=== PATIENT | female | born 1995 | race Caucasian/White ===

== ENCOUNTER 2022-01-13 00:08 | Day surgery (SDC) | payer OTHER, SELFPAY ==
--- NOTE | 2021-11-30 07:46 | PM.IMHP ---
H&P: HPI History of Present Illness Date/Time: 11/30/21 07:46 Chief Complaint: A 26-year-old multipara desires permanent sterilization. Risk and benefits reviewed the procedure. Alternatives including but not exclusive of pills patches large ex injections were all reviewed. She understands that this is irreversible. Failure rate of 05/999 with subsequent risk of ectopic bleeding and . She had all questions answered and asked to proceed PMFSH Social History Social History Smoking status: Current every day smoker Exam Const: General: cooperative, healthy appearing and comfortable Nutritional Appearance: average body habitus and well nourished Orientation/consciousness: oriented to person, oriented to place and oriented to time Chest: Chest palpation & inspection: normal inspection of the chest Resp: Effort & Inspection: normal respiratory effort Cardio: Rate: regular rate Rhythm: regular rhythm Heart sounds: S1 normal heart sound present and S2 normal heart sound present GI: Inspection: normal to inspection : General: Yes bimanual renal exam normal bilaterally External Female Exam: normal external appearance Speculum Exam - Vagina: normal appearance of the vagina Speculum Exam - Cervix: normal appearance of the cervix Bimanual exam- vagina & uterus: uterine size normal Bimanual Exam- Adnexa, other: normal adnexae Assessment and Plan Assessment and plan (1) Sterilization: Code(s): Z30.2 - Encounter for sterilization Status: Acute Plan laparoscopic bilateral tubal ligation
--- NOTE | 2021-12-02 07:15 | WPDHPUPDATE1 ---
History and Physical Update Update Date/Time: 12/02/21 07:15 History and Physical has been reviewed, including an updated exam of the patient. There are NO changes in the patient's condition. Risks, benefits, and alternatives have been discussed and questions answered. Patient agrees to proceed with procedure.
[2022-01-10 14:29] VITALS: BMI 36.0
--- NOTE | 2022-01-10 14:34 | PC.NURSE ---
Report to the Outpatient Waiting Room, entrance under the green pavilion located off [facility], at time 0630 on date 01/13/22. Planned Procedure Time: 0830. Time changes happen often and if your time is changed the preop area will call you the afternoon before. - You and your visitor will be asked to self-screen and do not enter if you have any COVID symptoms. - We encourage only one visitor and NO visitors under age 16 are allowed at this time. Your visitor will receive communication by the phone number that is given day of service. - The patient visitor is requested to social distance or may leave the building when not with patient due to restrictions. - A mask is required within the hospital. Patients may have clear liquids (water, carbonated beverages, clear teas, apple juice) until 3 hours prior to surgery with a maximum of 20 ounces. - No food from midnight until time of surgery Take the following medications with a SIP of water the morning of surgery: N/A Medications to discontinue per physician: N/A Date to take last dose: N/A Please no make-up, nail ukrainian, hairspray, perfume, deodorant, or body powder the day of surgery. No jewelry (including any body piercings) or valuables the day of surgery, leave them at home. Please take a shower or bath the night before, or the morning of, surgery with an antibacterial soap. Wear comfortable, loose fitting clothing. - Jewelry must be removed prior to entering the operating room. Rings and piercings that are not removed may be cut off. - The hospital will not accept responsibility for valuables. - Please leave all valuables, including medications, at home the day of surgery. If you are going home after surgery, a licensed hog driver must drive you home. - NO public transportation without another adult. - We recommend that an adult stay with you for 24 hours following discharge. - We also recommend that you do not drive, make important decision, drink alcoholic beverages, or take any drugs that were not prescribed by your health care provider for at least 24 hours after your discharge time. Follow any additional instructions given to you from your surgeon. If you or anyone in your household have experienced Covid symptoms in the past week, please notify your surgeon or the nurse liaison at the phone number below for possible testing. Telephone instructions given to PT - DOLLY DIOR and asked if any additional questions and then verbalized understanding. Patient advised to call surgeon office or pre surgery nurse liaison [phone] if any additional questions.
--- NOTE | 2022-01-11 16:34 | PM.IMHP ---
H&P: HPI History of Present Illness Date/Time: 01/11/22 16:34 Chief Complaint: desires sterilization Narrative: 26-year-old multiparous patient desires permanent irreversible sterilization. She declines attempts at pills patches injections long-acting contraception etc.. She understands this to be completely irreversible with a failure rate of 05/999 risks and benefits of the procedure were also reviewed. She had all questions answered and asked to proceed PMFSH Social History Social History Years smoked: 2 Smoking status: Current every day smoker Tobacco type: cigarettes Alcohol intake: current Alcohol use details: 2/MONTH Substance use: never Substance use type: does not use Spiritual care concerns: No Meds Home Medications and Allergies Home Medications Medication Instructions Recorded Confirmed Type No Home Medications 01/10/22 01/10/22 History Allergies Allergy/AdvReac Type Severity Reaction Status Date / Time tramadol Allergy Hives Verified 01/10/22 14:28 Exam Const: General: cooperative, healthy appearing and comfortable Orientation/consciousness: oriented to person, oriented to place and oriented to time HENMT: Head: normal to inspection Chest: Chest palpation & inspection: normal inspection of the chest Resp: Effort & Inspection: normal respiratory effort Cardio: Rate: regular rate Rhythm: regular rhythm Heart sounds: S1 normal heart sound present and S2 normal heart sound present : External Female Exam: normal external appearance Speculum Exam - Vagina: normal appearance of the vagina Speculum Exam - Cervix: normal appearance of the cervix Bimanual exam- vagina & uterus: uterine size normal Bimanual Exam- Adnexa, other: normal adnexae Assessment and Plan Assessment and plan (1) Sterilization: Code(s): Z30.2 - Encounter for sterilization Status: Acute Plan laparoscopic bilateral tubal ligation
--- NOTE | 2022-01-12 13:27 | P.PNAN_ITS ---
Anes - Initial Pre Proc Eval Procedure: Operation Date: 01/13/22 08:30 Proposed Procedures p Laparoscopic Bilateral Tubal Ligation with Fallopian Rings - Alex Manrique MD Date/Time: 01/12/22 13:27 Surgeon: Alex Manrique MD Pre Op Diagnosis: desires sterilization Patient Data Age: 26 Gender: F Height: 1.59 m Weight: 90.72 kg Allergies Allergy/AdvReac Type Severity Reaction Status Date / Time tramadol Allergy Hives Verified 01/13/22 06:47 Home Medications Medication Instructions Recorded Confirmed Type hydrocodone 5 mg-acetaminophen 325 1 tablet PO Q4H PRN pain #20 tabs 01/13/22 Rx mg tablet Patient hx anesthesia problems: none Family hx anesthesia problems: none Results Review: All pre-operative results and documents have been reviewed as part of the pre- operative evaluation. COUNT INCLUDES THE [facility] Social History Social History (Updated 01/13/22 @ 07:13 by Flip Beltran DO) Years smoked: 2 Smoking status: Current every day smoker Tobacco type: cigarettes Alcohol intake: current Alcohol use details: 1-2 drinks/day Substance use: never Substance use type: does not use Living arrangements: with family Spiritual care concerns: No Anes - Eval Final PreProcedure Day of Procedure 01/12/22 13:27 Patient weight: obese Heart: regular rate and rhythm Lungs: clear to auscultation Airway: Mallampati scale class II Neurological: alert and oriented Last oral intake: >/= 8 hours ASA classification: II Emergent: no Anesthetic plan: proceed Anesthesia type and monitoring: general ETT and standard monitoring Results Review: All pre-operative results and documents have been reviewed as part of the pre- operative evaluation. Informed Consent: The patient's anesthetic plan and its attendant risks and benefits were discussed with the patient/family/POA. Questions were solicited and answers provided to the satisfaction of the patient/family/POA.
[2022-01-13] VITALS (8 sets, daily range): BP systolic 112–143; BP diastolic 71–107; PULSE 71–109; RESP 12–24; TEMP 36.2–36.8; O2SAT 92–100
--- NOTE | 2022-01-13 06:48 | WPDHPUPDATE1 ---
History and Physical Update Update Date/Time: 01/13/22 06:48 History and Physical has been reviewed, including an updated exam of the patient. There are NO changes in the patient's condition. Risks, benefits, and alternatives have been discussed and questions answered. Patient agrees to proceed with procedure.
[2022-01-13] MEDS: ACETAMINOPHEN 500 MG TABLET 1000 MG PO (06:53)
[2022-01-13] MEDS: LACTATED RINGERS 1,000 ML 30 ML IV CONT (07:27)
[2022-01-13] MEDS: KETOROLAC 15 MG/ML VIAL (*BKC) IV PUSH ×2 (07:27→09:36)
--- NOTE | 2022-01-13 08:00 | W.PM.PROC2 ---
Procedure Note - Detailed Date of Procedure 01/13/22 Pre-op Diagnosis desires sterilization Post-op Diagnosis Same Procedure Performed Laparoscopic bilateral tubal ligation via silastic rings Surgeon Alex Manrique MD Anesthesia General Indications a 26-year-old female who desires permanent irreversible sterilization Findings normal-appearing uterus ovaries and tubes. Normal-appearing appendix and gallbladder liver edge. Description of Procedure Patient was prepped draped in normal sterile fashion placed in the dorsal lithotomy position. Under excellent general trach anesthesia weighted speculum placed in posterior fornix vagina. Anterior lip of the cervix grasped with a single-tooth tenaculum. The Zamora's cannula inserted the cervix and attached to the single-tooth to be used later for uterine ablation. After emptying the bladder of clear urine the weighted speculum was removed. The gloves were changed. Infraumbilical incision made the Veress needle passed in the abdomen. Abdomen filled with CO2 gas [id number]. The 5mm trocar advanced in the abdomen. Downside visualized no injury seen. Gas reattached. The patient placed in Trendelenburg and a suprapubic incision made. The 8mm trocar advanced under direct visualization assuring no injury. The right fallopian tube was grasped a good knuckle of tube formed with excellent blanching. The left fallopian tube was then grasped and a good knuckle of tube formed with excellent blanching as well. Photo documentation was undertaken. The gallbladder and liver edge were visualized and photo documented. No other abnormalities were seen. The lower site removed. The gas removed from the abdomen. The upper site removed. The incisions closed with 4 Monocryl glue. Instruments removed from the vagina and the patient was awakened. She went to recovery in satisfactory condition. All sponge, needle, instrument counts were correct. There were no immediate complications Estimated Blood Loss 5 Drains No Packing No Pathology None sent Complications No immediate complications Condition Stable Disposition PACU
[2022-01-13] MEDS: fentaNYL CITRATE INJ (*CRX) 100 MCG/2 ML VIAL 25 MCG IV PUSH ×8 (08:10→09:09)
[2022-01-13] MEDS: oxyCODONE HCL (*CRX) 5 MG TAB IR PO (09:49)
[2022-01-13] MEDS: ONDANSETRON INJ 4 MG/2 ML VIAL IV PUSH (10:31)
== END 2022-01-13 10:10 | disposition home or self-care (01) ==
PROVIDERS: PCP Nurse Practitioner Family; Visit Provider Obstetrics & Gynecology
PROC: (CPT 58671; principal; 2022-01-13 08:30)
DX: Z30.2 Encounter for sterilization (principal); F17.210 Nicotine dependence, cigarettes, uncomplicated; E66.9 Obesity, unspecified; Z68.36 Body mass index [BMI] 36.0-36.9, adult
CPT/HCPCS: 58671; A4264; A9270; J0330; J1100; J1885; J2250; J2405; J2704; J3010; J7120

== ENCOUNTER 2022-03-09 12:42 | Outpatient (CLI) | payer OTHER, SELFPAY | END 2022-03-09 12:43 | disposition home or self-care (01) | LOC: ANHAUDIO 12:43 | PROVIDERS: PCP Nurse Practitioner Family; Visit Provider Otolaryngology | DX: H91.93 Unspecified hearing loss, bilateral (principal) | CPT/HCPCS: 92557; 92567 ==

== ENCOUNTER 2022-05-18 11:46 | Outpatient (CLI) | payer OTHER, SELFPAY ==
--- NOTE | ~2022-05-18 | XR_ITS ---
EXAMINATION: XR chest 2V 05/18/2022 12:07 INDICATION: Chest discomfort PROCEDURE: 2 view chest COMPARISON: No prior studies for comparison. FINDINGS: The lungs are clear. The cardiomediastinal silhouette is within normal limits. There are no pleural effusions. There is no pneumothorax suspected. IMPRESSION: 1: NO ACUTE CARDIOPULMONARY DISEASE. Reviewed, dictated and finalized at location L. [facility]
== END 2022-05-18 11:47 | disposition home or self-care (01) ==
PROVIDERS: PCP Nurse Practitioner Family; Visit Provider Nurse Practitioner Family
DX: R05.9 Cough, unspecified (principal); R07.89 Other chest pain
CPT/HCPCS: 71046

== ENCOUNTER 2022-08-18 12:20 | Outpatient (CLI) | payer OTHER, SELFPAY ==
--- NOTE | ~2022-08-18 | US_ITS ---
EXAMINATION: US breast BI limited HISTORY: Pain in the upper outer quadrant of the right breast, the outer left breast, in the bilatera l axillae. TECHNIQUE: Bilateral axillary and limited bilateral breast ultrasound was performed. FINDINGS: No suspicious sonographic correlate is identified for the reported pain in either breast or in the axillary regions. Incidental note is made of an intramammary lymph node at the 2:00 location, 5 cm from the nipple in the left breast. IMPRESSION: No specific sonographic correlate is identified for the patient's reported bilateral breast and axill a pain Further evaluation at this time should be based on clinical assessment. Continued follow-up ph ysical examination is recommended. BI-RADS Category 2: Benign finding(s). Reviewed, dictated and finalized at location A. IMPRESSION: No specific sonographic correlate is identified for the patient's reported bila teral breast and axilla pain Further evaluation at this time should be based on clinical assessment. Continued follow-up physical examination is recommended. BI-RADS Category 2: Benign finding(s).
== END 2022-08-18 12:21 | disposition home or self-care (01) ==
PROVIDERS: PCP Nurse Practitioner Family; Visit Provider Obstetrics & Gynecology
DX: N64.4 Mastodynia (principal)
CPT/HCPCS: 76642

== ENCOUNTER 2022-11-30 09:03 | Outpatient (CLI) | payer OTHER, SELFPAY ==
--- NOTE | 2022-11-30 10:00 | NEURO_ITS ---
Impression: # Non-diabetic complains of numbness of right hand. # Normal Nerve Conduction Study. # No evidence of Carpal Tunnel Syndrome or ulnar neuropathy. # Normal needle/EMG. Nerve Conduction Studies Anti Sensory Summary Table Stim Site NR Peak (ms) P-T Amp (?V) Site1 Site2 Delta-P (ms) Dist (cm) Larry (m/s) Right Median Anti Sensory (2-3nd Digit) Wrist 2.6 82.9 Wrist 2-3nd Digit 2.6 14.0 54 Wrist 2.6 77.7 Wrist 2-3nd Digit 2.6 14.0 54 Right Radial Anti Sensory (Base 1st Digit) Wrist 1.9 45.4 Wrist Base 1st Digit 1.9 0.0 Right Ulnar Anti Sensory (5th Digit) Wrist 2.2 84.7 Wrist 5th Digit 2.2 14.0 64 Motor Summary Table Stim Site NR Onset (ms) O-P Amp (mV) Site1 Site2 Delta-0 (ms) Dist (cm) Larry (m/s) Right Median Motor (Abd Poll Brev) Wrist 2.7 3.9 Elbow Wrist 4.3 27.0 63 Elbow 7.0 2.9 Right Ulnar Motor (Abd Dig Minimi) Wrist 2.2 6.3 A Elbow Wrist 4.8 29.0 60 A Elbow 7.0 5.4 F Wave Studies NR F-Lat (ms) L-R F-Lat (ms) Right Median (Mrkrs) (Abd Poll Brev) 23.98 Right Ulnar (Mrkrs) (Abd Dig Min) 22.69 EMG Side Muscle Nerve Root Ins Act Fibs Amp Dur Recrt Comment Right 1stDorInt Ulnar C8-T1 Nml Nml Nml Nml Nml Right Ext Indicis Radial (Post Int) C7-8 Nml Nml Nml Nml Nml Right Ext Digitorum Radial (Post Int) C7-8 Nml Nml Nml Nml Nml Right BrachioRad Radial C5-6 Nml Nml Nml Nml Nml Right PronatorTeres Median C6-7 Nml Nml Nml Nml Nml Right Abd Poll Brev Median C8-T1 Nml Nml Nml Nml Nml MTDD
== END 2022-11-30 09:04 | disposition home or self-care (01) ==
LOC: ANHNEURO 09:04
PROVIDERS: PCP Nurse Practitioner Family; Visit Provider Family Medicine
DX: R20.2 Paresthesia of skin (principal); G56.21 Lesion of ulnar nerve, right upper limb; L03.115 Cellulitis of right lower limb; T14.8XXA Other injury of unspecified body region, initial encounter
CPT/HCPCS: 95886; 95909

== ENCOUNTER 2023-12-20 09:08 | Outpatient (CLI) | payer BC, SELFPAY ==
--- NOTE | ~2023-12-20 | MR_ITS ---
MR breast BI wo/w con 12/20/2023 11:01 CDT INDICATION: Left nipple discharge TECHNIQUE: MRI of the breasts perform using standard protocol pre-and post IV contrast with the follo wing sequences: Axial T2 STIR, axial T1, axial vibrant T1 with fat suppression precontrast and multip hasic postcontrast. 18 cc MultiHance administered intravenously. COMPARISON: Ultrasound dated 08/18/2022 FINDINGS: There are no abnormalities on the precontrast sequences. There is marked background parench ymal enhancement. No enhancing lesions following contrast administration. No areas of enhancement m eeting threshold criteria on CAD analysis. No evidence of signal abnormalities in the axillary or in ternal mammary node distributions. LEFT BREAST: No signal abnormalities on precontrast sequences. There is marked background parenchyma l enhancement. No enhancing lesions following contrast administration. No areas of enhancement kings ting threshold criteria on CAD analysis. No evidence of signal abnormalities in the axillary or int ernal mammary node distributions. IMPRESSION: 1: Right breast: Negative. No evidence of malignancy. Limited study due to background enhancement. BI-RADS category 1. . 2: Left breast: Negative. No evidence of malignancy. Limited study due to background enhancement. B I-RADS category 1. . Recommendation: Consider correlation with diagnostic bilateral mammogram and Limited left breast ultr asound. Reviewed, dictated and finalized at location B. IMPRESSION: 1: Right breast: Negative. No evidence of malignancy. Limited study due to b ackground enhancement. BI-RADS category 1. . 2: Left breast: Negative. No evidence of malignancy. Limited study due to janelle kground enhancement. BI-RADS category 1. . Recommendation: Consider correlation with diagnostic bilateral mammogram and Li mited left breast ultrasound.
== END 2023-12-20 09:09 | disposition home or self-care (01) ==
PROVIDERS: PCP Obstetrics & Gynecology; Visit Provider Obstetrics & Gynecology
DX: N64.52 Nipple discharge (principal)
CPT/HCPCS: 77049; A9577; C8908